=== PATIENT | female | born 1990 | race Caucasian/White ===

== ENCOUNTER 2021-08-29 07:37 | Inpatient (IN) ==
[2021-08-29] MEDS ORDERED: LACTATED RINGER'S 1,000 ML IV PRN (08:14)
[2021-08-29] MEDS ORDERED: OXYTOCIN 30 UNITS/500 ML BAG IV PRN ×3 (08:14→19:10)
[2021-08-29] MEDS ORDERED: PENICILLIN G POTASSIUM 6 MU in DEXTROSE 5% 250 ML IV STA (08:18)
[2021-08-29 08:42] LABS: Hematocrit (blood only) 32.3 % (37-47); Hemoglobin 10.6 g/dL (12.0-16.0); Mean Corpuscular Hemoglobin 26.8 pg (25-34); Mean Corpuscular Hgb Conc 32.8 g/dL (32-36); Mean Corpuscular Volume 81.6 fL (80-100); Mean Platelet Volume 10.6 fL (7.4-10.4); Platelet Count 264 K/uL (130-400); RDW Coefficient of Variation 13.3 % (11.5-14.5); RDW Standard Deviation 40.1 fL (36.4-46.3); Red Blood Count 3.96 M/uL (4.2-5.4); White Blood Count 9.93 K/uL (4.8-10.8)
--- NOTE | 2021-08-29 10:27 | History & Physical Report ---
Date of Service August 29, 2021 Assessment & Plan (1) GBS (group B Streptococcus carrier), +RV culture, currently : Plan: 31yo at 39.4 weeks GA. eIOL. 1. Fetus: Cat 1/ Reactive 2. Labor: s/p Robertson. Oxytocin per protocol. Will AROM when PCN complete. 3. GBS positive: PCN 4. Vitals: Normal (2) Supervision of normal intrauterine in multigravida: Admission and Anticipated Discharge Date Admission Date: August 29, 2021 History of Present Illness Primary Care Provider: NO PCP Maddy is a 31-year-old at 39 weeks 4 days gestational age presents for an elective induction of labor. has been uncomplicated to date. Patient has a history of 2 prior vaginal deliveries without complication. Patient fully placed last night which has subsequently come out this morning. Labs: Initial OB Labs 01/16/21 Blood Type & RH O positive Antibody Screen negative HCT/HGB 42.0/14.3 Platelets 312 Pap Test 2 yrs ago Chlamydia Gonorrhea Rubella immune RPR non reactive Urine Culture/Screen no growth HBsAg non reactive HIV non reactive MCV 89.7 QUAD- negative (04/03/21) Allergies Allergy/AdvReac Type Severity Reaction Status Date / Time No Known Allergies Allergy Verified 08/28/21 10:22 Home Medications Medication Instructions Recorded Confirmed Type prenat.vits,deshawn,rwh-jwla-nbtwa 1 tab PO DAILY 08/29/21 08/29/21 History Patient History Surgical History S/P dilation and curettage Family History Father Bladder cancer Aunt Breast cancer Grandmother (Maternal) Colorectal cancer Social History (Updated 05/25/21 @ 07:37 by Fabiola Jimenez) Smoking Status: Never smoker Second Hand Exposure: No; Hx Alcohol Use: No Hx Substance Use: No Preferred Language: Portuguese Communication Ability: Effective Blocklayer Required: No Beliefs That Will Affect Care: None marital status: marital status details: Eyad (33) [phone] Current Living Situation: Spouse Current Living Situation Comment: 4yr old and 2yr current occupational status: employed current occupation: Business analyist. Other Information That Helps Us Care for You: No Feels Safe at Home: Yes Safety Concerns: Feels Safe At This Time Assistive Devices: None Physical Exam Constitutional: WD/WN, vitals as above Respiratory: normal respiratory effort; no respiratory distress and no labored breathing Cardiovascular: Rate/Rhythm: regular rate Psychiatric: A+Ox3, euthymic affect Genitourinary: normal external appearance OB Exam Abdomen: + vertex Manual OB Exam: + cervical dilation 3 cm, + cervical effacement 60% and + station -2 OB Exam Monitor Tracing: + external FHT monitor used, + external uterine monitor used, + category I and + normal FHT variability; no early decelerations present, no late decelerations present and no variable decelerations Results & Data ([facility]) Vital Signs (Past 12 Hours) Vital Signs Temp Pulse Resp BP 08/29/21 08:19 36.5 C 20 08/29/21 07:52 108 H 113/67 Coding Level of Care Code None Diagnoses GBS (group B Streptococcus carrier), +RV culture, currently O99.820 Supervision of normal intrauterine in multigravida Z34.80
[2021-08-29] MEDS: PENICILLIN G POTASSIUM 3 MU in DEXTROSE 5% 100 ML IV PRN ×2 (13:16→16:50)
[2021-08-29] MEDS ORDERED: SODIUM CHLORIDE 0.9% INJ 10 ML VIAL ONE (13:24)
[2021-08-29] MEDS ORDERED: BUPIVACAINE 0.25% 30 ML VIAL ONE (13:24)
[2021-08-29] MEDS ORDERED: fentaNYL citrate 100 MCG/2 ML VIAL ONE (13:24)
[2021-08-29] MEDS ORDERED: ePHEDrine sulfate 50 MG/ML AMP ONE (13:24)
[2021-08-29] MEDS ORDERED: fentaNYL 2MCG/ML ROPIVACAINE 1.25MG/ML 100 ML BAG EPI ONE (13:25)
[2021-08-29] MEDS ORDERED: fentaNYL 2MCG/ML ROPIVACAINE 1.25MG/ML 100 ML BAG EPI PRN (13:32)
[2021-08-29] MEDS ORDERED: ONDANSETRON INJ 2 MG/ML 2 ML VIAL IV PRN (13:32)
[2021-08-29] MEDS ORDERED: NALOXONE HCL 1 MG in SODIUM CHLORIDE 0.9% 1000ML 1,000 ML IV PRN (13:32)
[2021-08-29] MEDS ORDERED: diphenhydrAMINE 50 MG/ML VIAL IV PRN (13:32)
[2021-08-29] MEDS ORDERED: NALBUPHINE HCL INJ 10 MG/ML AMP IV PRN (13:32)
[2021-08-29] MEDS ORDERED: ePHEDrine sulfate 50 MG/ML AMP IV PRN (13:32)
[2021-08-29] MEDS ORDERED: NALOXONE HCL 0.4 MG/1 ML VIAL/CARP IV PRN (13:32)
--- NOTE | 2021-08-29 13:36 | Anesthesiology Consultation ---
Date of Service August 29, 2021 Assessment & Plan ASA ASA2 Proposed Anesthesia Anesthesia Type: Labor Epidural Risk / Benefits Reviewed With: PT / POA / Parent / Guardian, Accepts Plan and Informed Consent Obtained History Height/Weight Height: 5 ft 3 in Weight: 69.853 kg Allergies Allergy/AdvReac Type Severity Reaction Status Date / Time No Known Allergies Allergy Verified 08/28/21 10:22 Medications Home Medications Medication Instructions Recorded Confirmed Last Taken prenat.vits,deshawn,kqa-llpa-nvium 1 tab PO DAILY 08/29/21 08/29/21 08/28/21 21:00 Active Medications Generic Name Dose Route Start Last Admin Trade Name Freq PRN Reason Stop Dose Admin Lactated Ringer's 1,000 mls @ 125 mls/hr 08/29/21 08:14 08/29/21 13:30 Lr IV 08/31/21 08:13 999 mls/hr .Q8H PRN Infusion L&D Protocol Protocol Penicillin G Potassium 3 mu/ 106 mls @ 100 mls/hr 08/29/21 11:14 08/29/21 13:16 Dextrose IV 09/08/21 11:13 100 mls/hr Q4H PRN Administration GBS(+) Until Delivery Oxytocin 30 units in 500 mls @ 8 mls/hr 08/29/21 08:17 08/29/21 11:26 Pitocin IV 08/31/21 08:16 0.48 units/hr .Q24H PRN 8 mls/hr Labor Induction/Augmentation Titration Protocol 0.48 UNITS/HR Ropivacaine 100 ml 08/29/21 13:32 08/29/21 14:08 Fentanyl 2mcg/Ml Ropivacaine 1.25mg/Ml 100 Ml Bag EPI 08/30/21 13:31 100 ml PRN PRN Administration Pain R/T Labor Protocol Exercise / Class Metabolic Activity II 4-5 Yardwork/Stairs/Walk up hill Past Family History Family History Father Bladder cancer Aunt Breast cancer Grandmother (Maternal) Colorectal cancer Past Surgical History Surgical History S/P dilation and curettage Past Anesthesia History No Hx of Anesthesia Complications and No Family Hx of Anesthesia Complications History of PONV No Hx of PONV and No Hx of Motion Sickness Social History Smoking Status: Never smoker Hx Alcohol Use: No Hx Substance Use: No substance use type: does not use Review of Systems denies fever/cough/ colds/ chest pain/ SOB/ DALIA denies DALIA Physical Exam Vital Signs Last Vital Signs Temp 36.5 C 08/29/21 08:19 Pulse 84 08/29/21 14:12 Resp 20 08/29/21 08:19 BP 110/67 08/29/21 14:12 Pulse Ox 100 08/29/21 14:11 ENMT Mouth: no TMJ abnormality and no dentition abnormality Thyromental Distance: > or= 3.5 Finger Breadths Mallampati Class: II Neck neck extension not limited Respiratory normal respiratory effort; no respiratory distress Auscultation: lungs clear to auscultation bilaterally Cardiovascular Rate/Rhythm: regular rate and regular rhythm Neurologic moves all extremities Psychiatric Orientation: alert and oriented x 3 Testing Laboratory Results 08/29/21 08:27
[2021-08-29] MEDS ORDERED: HYDROCORTISONE ACETATE 25 MG SUPP PR PRN (19:10)
[2021-08-29] MEDS ORDERED: DIPHTHERIA/TETANUS/PERTUSSIS 0.5 ML SYR/VIAL IM ONE (19:10)
[2021-08-29] MEDS ORDERED: METHYLERGONOVINE MALEATE 0.2 MG/ML AMP IM ONE (19:10)
[2021-08-29] MEDS ORDERED: BENZOCAINE 20% AER SPR 82.5 GM CAN EXT PRN (19:10)
[2021-08-29] MEDS ORDERED: METHYLERGONOVINE MALEATE 0.2 MG/ML AMP ONE (19:13)
--- NOTE | 2021-08-29 19:15 | Anesthesiology Progress Note ---
Date of Service August 29, 2021 Anesthesia Post Procedure Vital Signs Vital Signs: Temp Pulse Resp BP Pulse Ox 08/29/21 19:12 89 109/70 08/29/21 18:55 101 H 116/64 08/29/21 18:40 100 H 110/59 L 08/29/21 18:25 36.7 C 91 H 20 119/63 08/29/21 18:21 89 99 08/29/21 18:16 90 99 08/29/21 18:11 95 H 99 08/29/21 18:06 96 H 100 08/29/21 18:01 96 H 100 08/29/21 17:56 109 H 100 08/29/21 17:51 143 H 100 08/29/21 17:48 131 H 168/86 H 08/29/21 17:46 128 H 100 08/29/21 17:41 91 H 100 08/29/21 17:36 83 100 08/29/21 17:34 83 126/76 08/29/21 17:31 88 100 08/29/21 17:26 85 100 08/29/21 17:21 77 100 08/29/21 17:18 87 128/76 08/29/21 17:16 89 100 08/29/21 17:11 91 H 100 08/29/21 17:06 90 100 08/29/21 17:03 92 H 134/78 08/29/21 17:01 86 100 08/29/21 16:56 36.6 C 89 20 100 08/29/21 16:51 78 100 08/29/21 16:49 84 128/67 08/29/21 16:46 83 100 08/29/21 16:42 74 93 08/29/21 16:41 78 100 08/29/21 16:37 92 H 94 08/29/21 16:36 78 100 08/29/21 16:35 74 119/74 08/29/21 16:31 78 99 08/29/21 16:26 100 H 100 08/29/21 16:21 74 100 08/29/21 16:18 73 118/74 08/29/21 16:16 80 95 08/29/21 16:11 72 100 08/29/21 16:06 75 100 08/29/21 16:03 75 119/76 08/29/21 16:01 85 100 08/29/21 15:56 74 100 08/29/21 15:51 78 100 08/29/21 15:49 76 119/76 08/29/21 15:46 82 100 08/29/21 15:41 90 100 08/29/21 15:36 77 100 08/29/21 15:34 75 118/73 08/29/21 15:31 79 100 08/29/21 15:26 95 H 100 08/29/21 15:21 71 100 08/29/21 15:19 64 111/69 08/29/21 15:16 69 100 08/29/21 15:11 77 100 08/29/21 15:06 94 H 100 08/29/21 15:05 73 125/79 08/29/21 15:01 66 100 08/29/21 14:56 92 H 100 08/29/21 14:51 86 100 08/29/21 14:48 73 111/69 08/29/21 14:46 70 98 08/29/21 14:41 95 H 100 08/29/21 14:36 79 98 08/29/21 14:33 89 112/71 08/29/21 14:31 81 98 08/29/21 14:28 78 115/62 08/29/21 14:26 81 98 08/29/21 14:22 91 H 110/72 08/29/21 14:21 79 98 08/29/21 14:20 83 107/70 08/29/21 14:18 88 109/70 08/29/21 14:16 77 109/64 98 08/29/21 14:14 75 109/65 08/29/21 14:12 84 110/67 08/29/21 14:11 80 100 08/29/21 14:10 72 114/67 08/29/21 14:08 76 114/70 08/29/21 14:06 78 112/65 100 08/29/21 14:01 83 100 08/29/21 13:56 84 99 08/29/21 13:51 88 100 08/29/21 13:46 95 H 100 08/29/21 10:48 80 104/67 08/29/21 09:43 76 119/67 08/29/21 08:19 36.5 C 20 08/29/21 07:52 36.5 C 108 H 20 113/67 Transfer of Care Handoff Completed per policy Notes Mental Status: alert / awake / arousable and participated in evaluation Patient Amnestic to Procedure: Yes Nausea / Vomiting: adequately controlled Pain: adequately controlled Airway Patency, RR, SpO2: stable & adequate BP & HR: stable & adequate Hydration State: stable & adequate Anesthetic Complications: no major complications apparent and Pt Satisfied with anesthetic care
[2021-08-29] MEDS: IBUPROFEN 600 MG TAB PO PRN (21:04)
[2021-08-30] MEDS: IBUPROFEN 600 MG TAB PO PRN ×4 (00:56→20:44)
--- NOTE | 2021-08-30 03:03 | Delivery Summary ---
DATE OF SERVICE: 08/29/2021. PROCEDURE: Normal spontaneous vaginal delivery with second-degree perineal laceration repair. SURGEON: Derrell Zepeda MD. PREOPERATIVE DIAGNOSES: 1. Single intrauterine at 39 weeks 4 days gestational age. 2. GBS positive. 3. Elective induction of labor. POSTOPERATIVE DIAGNOSES: 1. Single intrauterine at 39 weeks 4 days gestational age. 2. GBS positive. 3. Elective induction of labor. 4. Status post delivery. ESTIMATED BLOOD LOSS: 300 mL. DRAINS: Straight cath at the completion of the case. URINE OUTPUT: 400 mL per straight cath. COMPLICATIONS: None. FINDINGS: Viable male with weight and Apgars pending. INDICATIONS: The patient is a 31-year-old G5, P2 at 39 weeks 4 days gestational age, admitted for el ective induction of labor. The patient had a Robertson placed last night, which fell out prior to presen ting in this morning for induction. She was started on oxytocin per regular protocol, received penic illin for GBS positive and later received an epidural for anesthesia. After she was noted to be compl ete on the penicillin, she underwent artificial rupture of membranes for clear fluid and progressed i n labor to complete-complete, +2 station and pushed over 2 contractions to achieve delivery. DESCRIPTION OF PROCEDURE: The patient progressed to 10 cm dilated, 100% effaced, positive 2 station, pushed over intact perineum with epidural anesthesia, and delivered a viable male infant, weight and Apgars as noted above. Head of the delivered in MAXIMNIO position, restituted to right transvers e. No nuchal cord was noted. Body and shoulders quickly followed. was noted to be vigorous soon after delivery and a 1 minute delayed cord clamping was initiated. The cord was then double cl amped and cut. remained on maternal abdomen. Cord blood was obtained. Attention was then turned to delivery of the placenta, which was delivered intact, 3-vessel cord, gen tle cord traction. On inspection of the perineum, vagina, cervix, there was noted to be a second-deg ree perineal laceration. The laceration was repaired with 3-0 Vicryl in a traditional crown stitch. Needle, sponge, and instrument counts were correct at the completion of the case. A rectal exam was performed to ensure that no sutures were in the vagina as the perineal thickness was noted to be rath er thin, especially within the vaginal canal. The needle, sponge, and instrument counts were correct at the completion of the case. Both, the mother and were stable in the immediate post-deliv ridge period. Job ID: [id number]
[2021-08-30] MEDS: ACETAMINOPHEN 325 MG TAB PO PRN ×2 (03:23→16:01)
[2021-08-30 07:02] LABS: Hematocrit (blood only) 26.3 % (37-47); Hemoglobin 8.4 g/dL (12.0-16.0)
--- NOTE | 2021-08-30 07:40 | Obstetrical Progress Note ---
Date of Service <Zia Noonan MD - Last Filed: 08/30/21 07:40> August 30, 2021 Assessment & Plan <Zia Noonan MD - Last Filed: 08/30/21 07:40> (1) Vaginal delivery: 31 yo now PPD1 from at 39wk4d -Continue routine care, discharge today -Vitals reviewed- HDS, afebrile -Blood type O+, GBS+ (PCN given intrapartum), Rubella immune -Pain control with ibuprofen, acetaminophen PRN -Encourage -Hgb 8.4 today, asymptomatic -F/u in 6 weeks with OB <Derrell Zepeda MD - Last Filed: 08/31/21 17:20> (1) Vaginal delivery: Subjective <Zia Noonan MD - Last Filed: 08/30/21 07:40> Ambulation: ambulating normally Voiding: no voiding problems Passing Gas:: Yes Diet Tolerance:: regular diet Lochia:: Small Feeding Type:: breast feeding Current Pain Level(1-10): 0 Pt doing well overall, no acute complaints or distress. Pain well controlled with medication. Would like to go home today. Review of Systems Denies fever/chills. Denies dyspnea, cough. Denies chest pain. Denies breast pain or discharge. Denies dysuria. Denies headache. Denies back pain. Physical Exam <Zia Noonan MD - Last Filed: 08/30/21 07:40> Exam per Dr. Zepeda Results & Data ([facility]) <Zia Noonan MD - Last Filed: 08/30/21 07:40> Vital Signs (Past 12 Hours) Vital Signs Temp Pulse Pulse Pulse Resp BP BP 08/30/21 03:15 36.7 C 84 18 99/63 L 08/30/21 00:30 36.6 C 90 18 103/66 08/29/21 21:03 100 H 115/67 08/29/21 21:00 36.7 C 20 08/29/21 20:30 20 08/29/21 19:55 86 20 117/61 Pulse Ox 08/30/21 03:15 97 08/30/21 00:30 96 08/29/21 21:03 08/29/21 21:00 08/29/21 20:30 08/29/21 19:55 <Derrell Zepeda MD - Last Filed: 08/31/21 17:20> Co-Signing Physician Notes Patient seen and evaluated and agree with the above findings and plan. Stable for discharge Resident Activity Tracking <Zia Noonan MD - Last Filed: 08/30/21 07:40> Resident Involvement: Resident Care Provided Care Provided: OB Delivery
[2021-08-30] MEDS: PRENATAL VITAMIN 1 TAB PO SCH (08:26)
[2021-08-30] MEDS: DOCUSATE SODIUM 100 MG CAP PO SCH ×2 (08:26→22:53)
[2021-08-30] MEDS ORDERED: bisacodyL 5 MG TABEC PO SCH (20:00)
[2021-08-31] MEDS ORDERED: bisacodyL 10 MG SUPP PR PRN
[2021-08-31] MEDS: IBUPROFEN 600 MG TAB PO PRN ×2 (04:26→09:39)
--- NOTE | 2021-08-31 05:48 | Obstetrical Progress Note ---
Date of Service <Zia Noonan MD - Last Filed: 08/31/21 06:49> August 31, 2021 Assessment & Plan <Zia Noonan MD - Last Filed: 08/31/21 06:49> (1) Vaginal delivery: 31 yo now PPD2 from at 39wk4d -Continue routine care, discharge today -Vitals reviewed- HDS, afebrile -Blood type O+, GBS+ (PCN given intrapartum), Rubella immune -Pain control with ibuprofen, acetaminophen PRN -Encourage -Hgb 8.4 on 08/30, asymptomatic -F/u in 6 weeks with OB <Allie Eldridge MD, FACOG - Last Filed: 08/31/21 07:46> (1) Vaginal delivery: Subjective <Zia Noonan MD - Last Filed: 08/31/21 06:49> Ambulation: ambulating normally Voiding: no voiding problems Passing Gas:: Yes Diet Tolerance:: regular diet Lochia:: Small Feeding Type:: breast feeding Current Pain Level(1-10): 0 Pt doing well overall, no acute complaints or distress. Pain well controlled with medication. Would like to go home today. Was supposed to go on day prior but baby had choking spell in evening so they stayed for the night, no choking spells since. Review of Systems Denies fever/chills. Denies dyspnea, cough. Denies chest pain. Denies breast pain or discharge. Denies dysuria. Denies headache. Denies back pain. Physical Exam <Zia Noonan MD - Last Filed: 08/31/21 06:49> General: Alert, oriented, no acute distress Cardiac: Regular rate and rhythm, normal S1, S2. No murmurs appreciated. Respiratory: Clear to auscultation b/l with good air flow entry, symmetric chest rise and fall. No wheezes or crackles. No increased work of breathing or accessory muscle use Abdomen: Soft, nontender, nondistended. Fundus firm and palpable at 2 cm below umbilicus. No guarding or rebound. Skin: No rashes or lesions Extremities: Warm, dry, well-perfused with capillary refill <2s b/l. No lower extremity edema, erythema or swelling Results & Data ([facility]) <Zia Noonan MD - Last Filed: 08/31/21 06:49> Vital Signs (Past 12 Hours) Vital Signs Temp Pulse Resp BP 08/31/21 04:00 36.6 C 80 20 118/70 08/30/21 20:00 36.8 C 82 18 122/76 <Allie Eldridge MD, FACOG - Last Filed: 08/31/21 07:46> Co-Signing Physician Notes Resident Physician Supervision Note: I interviewed and examined the patient. Discussed with Dr. Noonan and agree with findings and plan as documented in the note. Any exceptions or clarifications are listed here: Doing well. Plan d/c today. Instructions given. Documented By: Allie Eldridge MD, FACOG Resident Activity Tracking <Zia Noonan MD - Last Filed: 08/31/21 06:49> Resident Involvement: Resident Care Provided Care Provided: OB Delivery
[2021-08-31] MEDS: PRENATAL VITAMIN 1 TAB PO SCH (09:39)
[2021-08-31] MEDS: DOCUSATE SODIUM 100 MG CAP PO SCH (09:39)
== END 2021-08-31 11:40 | disposition home or self-care (01) | DRG 807 ==
LOC: 4S1 07:37 → 4S2 21:30

== ENCOUNTER 2023-10-14 09:37 | Inpatient (IN) ==
[2023-10-14] MEDS ORDERED: LIDOCAINE 1% LOCAL 20 ML VIAL INFIL PRN (09:59)
[2023-10-14] MEDS ORDERED: OXYTOCIN 30 UNITS/NSS 30 UNITS/500 ML BAG IV PRN ×2 (09:59→19:24)
--- NOTE | 2023-10-14 10:07 | History & Physical Report ---
"Date of Service October 14, 2023 Assessment & Plan (1) Encounter for induction of labor: (2) Group beta Strep positive: Plan pitocin arom when indicated monitor tracing, category 1 penicillin G for GBS+ Admission and Anticipated Discharge Date Admission Date: October 14, 2023 History of Present Illness Primary Care Provider: PIETER PCP 33 yo at 39w4d admitted for IOL. Denies JACOB, CP, SOB, N/V/D, LE pain. GBS +, RH+, + movement, negative LOF Allergies Allergy/AdvReac Type Severity Reaction Status Date / Time No Known Allergies Allergy Verified 10/10/23 13:34 Home Medications Medication Instructions Recorded Confirmed Type prenat.vits,deshawn,mcv-agdy-tdiya 1 tab PO DAILY 08/29/21 10/14/23 History ferrous sulfate 325 mg (65 mg 325 mg PO DAILY 08/23/23 10/14/23 History iron) tablet (Feosol) Patient History Medical History (Updated 10/14/23 @ 10:14 by Itz Rosas DO) History of chicken pox GBS (group B Streptococcus carrier), +RV culture, currently Surgical History S/P dilation and curettage Family History Father Bladder cancer Aunt Breast cancer Grandmother (Maternal) Colorectal cancer Denies family history of Ovarian cancer Social History Smoking Status: Never smoker Second Hand Exposure: No; Do You Dip or Chew Tobacco: No; Hx Alcohol Use: No Hx Substance Use: No Preferred Language: [place]guill[place] Communication Ability: Effective Slide Fasteners Inspector Required: No Beliefs That Will Affect Care: None marital status: marital status details: Eyad Crystal (35) [phone] Current Living Situation: Spouse and Family Current Living Situation Comment: lives with spouse, 3 children, dogs current occupational status: employed current occupation: Business analyist. Other Information That Helps Us Care for You: No Feels Safe at Home: Yes Safety Concerns: Feels Safe At This Time Assistive Devices: None OB History History : 6 Full term: 3 Premature: 0 Total Number of Induced Abortions: 0 Total Number of Spontaneous Abortions: 2 Ectopics: 0 Multiple births: 0 Number of Living Children: 3 Menstrual History Last menstrual period: Yes Menstrual reliability: definite Flow: normal Menstrual regularity: regular Monthly: Yes Age at menarche: 13 On control pills at conception: No Date of positive home test: 02/06/23 Menstrual history comments: cycles 28-30 days Details: last pap 06/01/[address] Flores Review of Systems reviewed, per HPI Physical Exam Physical Exam: General: patient resting comfortably, NAD, non-toxic in appearance Skin: warm, dry, intact HEENT: NC/AT, moist mucus membranes Heart: +S1/S2, regular, no m/r/g Lungs: equal air entry bilaterally, no rales/rhonchi/wheezes Abd: +BS, soft, NT/ND, gravid uterus Cervical: 2.5|75|-2| Ext: warm, no clubbing/cyanosis or edema Neuro: nonfocal, patient AA&O x 4, speech intact, no facial droop, moving all extremities on command. : FHR baseline 130, moderate variability, accelerations present, decelerations absent Results & Data Vital Signs (Past 12 Hours) Vital Signs Temp Pulse Resp BP 10/14/23 09:51 103 H 113/55 L 10/14/23 09:45 16 10/14/23 09:45 36.7 C 16 Supervising Physician Co-Signing Physician Notes Patient seen and evaluated and agree with the above findings and plan. Resident Activity Tracking Resident Involvement: Resident Care Provided Care Provided: Adult Hospital Medicine"
[2023-10-14 10:46] LABS: Hematocrit (blood only) 34.4 % (37.0-47.0); Hemoglobin 11.5 g/dl (12.0-16.0); Mean Corpuscular Hemoglobin 29.3 pg (25.0-34.0); Mean Corpuscular Hgb Conc 33.4 g/dL (32.0-36.0); Mean Corpuscular Volume 87.5 fL (80.0-100.0); Mean Platelet Volume 10.3 fL (9.4-12.4); Platelet Count 197 K/uL (130-400); RDW Coefficient of Variation 16.1 % (11.5-14.5); RDW Standard Deviation 51.9 fL (36.4-46.3); Red Blood Count 3.93 M/uL (4.20-5.40); White Blood Count 8.28 K/ul (4.8-10.8)
[2023-10-14] MEDS: LACTATED RINGER'S 1,000 ML IV PRN (11:00)
[2023-10-14] MEDS: PENICILLIN GK 6 MU in DEXTROSE 5% 250 ML IV STA (11:09)
[2023-10-14] MEDS: OXYTOCIN 30 UNITS/NSS 30 UNITS/500 ML BAG IV PRN (11:10)
[2023-10-14] MEDS: PENICILLIN GK 3 MU in DEXTROSE 5% 100 ML IV PRN (14:40)
[2023-10-14] MEDS ORDERED: ROPIVACAINE 0.5% PF 5 MG/ML 20 ML VIAL EPI PRN (15:14)
[2023-10-14] MEDS ORDERED: SODIUM CHLORIDE 0.9% PF INJ 10 ML VIAL EPI PRN (15:14)
[2023-10-14] MEDS ORDERED: LIDOCAINE 2% MPF LOCAL 5 ML VIAL EPI PRN (15:14)
[2023-10-14] MEDS ORDERED: ePHEDrine sulfate 50 MG/ML AMP IV PRN (15:14)
[2023-10-14] MEDS ORDERED: NALBUPHINE HCL 5 MG in SYRINGE 0 ML IV PRN (15:14)
[2023-10-14] MEDS ORDERED: NALOXONE HCL 0.4 MG/1 ML VIAL/CARP IV PRN (15:14)
[2023-10-14] MEDS ORDERED: fentaNYL citrate PF 100 MCG/2 ML VIAL EPI PRN (15:14)
[2023-10-14] MEDS ORDERED: BUPIVACAINE 0.25% PF 30 ML VIAL EPI PRN (15:14)
[2023-10-14] MEDS ORDERED: diphenhydrAMINE 50 MG/ML VIAL IV PRN (15:14)
[2023-10-14] MEDS ORDERED: ONDANSETRON INJ 2 MG/ML 2 ML VIAL IV PRN (15:14)
[2023-10-14] MEDS ORDERED: NALOXONE HCL 1 MG in SODIUM CHLORIDE 0.9% 1,000 ML IV PRN (15:14)
--- NOTE | 2023-10-14 15:15 | Anesthesiology Consultation ---
Date of Service October 14, 2023 Assessment & Plan (1) Encounter for pre-operative examination: Chart Review Chart Review: Patient NOT seen in Pre Admission Testing and Acceptable Risk for Labor Epidural Consults Requested none History Height/Weight Height: 5 ft 3 in Weight: 72.665 kg Allergies Allergy/AdvReac Type Severity Reaction Status Date / Time No Known Allergies Allergy Verified 10/10/23 13:34 Medications Home Medications Medication Instructions Recorded Confirmed Last Taken prenat.vits,deshawn,wst-qqei-owkwm 1 tab PO DAILY 08/29/21 10/14/23 10/13/23 21:00 ferrous sulfate 325 mg (65 mg 325 mg PO DAILY 08/23/23 10/14/23 10/13/23 21:00 iron) tablet (Feosol) Active Medications Generic Name Dose Route Start Last Admin Trade Name Freq PRN Reason Stop Dose Admin Lactated Ringer's 1,000 mls @ 125 mls/hr 10/14/23 09:59 10/14/23 13:10 Lr IV 10/16/23 09:58 125 mls/hr .Q8H PRN Administration L&D Protocol Protocol Penicillin G Potassium 3 mu/ 106 mls @ 100 mls/hr 10/14/23 12:59 10/14/23 14:40 Dextrose IV 10/24/23 12:58 100 mls/hr Q4H PRN Administration GBS(+) Until Delivery Oxytocin 30 units in 500 mls @ 6 mls/hr 10/14/23 10:02 10/14/23 14:30 Pitocin 30 Units/Nss IV 10/16/23 10:01 0.36 units/hr .Q24H PRN 6 mls/hr Labor Induction/Augmentation Titration Protocol 0.36 UNITS/HR Past Medical History Medical History (Updated 10/14/23 @ 15:15 by Oc Coleman MD) Encounter for pre-operative examination History of chicken pox GBS (group B Streptococcus carrier), +RV culture, currently Past Family History Family History Father Bladder cancer Aunt Breast cancer Grandmother (Maternal) Colorectal cancer Denies family history of Ovarian cancer Past Surgical History Surgical History S/P dilation and curettage Social History Smoking Status: Never smoker Do You Dip or Chew Tobacco: No Hx Alcohol Use: No Hx Substance Use: No substance use type: does not use Physical Exam Vital Signs Last Vital Signs Temp 36.7 C 10/14/23 14:00 Pulse 95 H 10/14/23 15:35 Resp 18 10/14/23 14:30 BP 127/71 10/14/23 15:35 Pulse Ox 100 10/14/23 15:32 Testing Laboratory Results 10/14/23 10:24 Blood Type O Positive 10/14/23 10:24 Antibody Screen NEGATIVE 10/14/23 10:24
[2023-10-14] MEDS: BUPIVACAINE 0.25% PF 30 ML VIAL EPI STA (15:38)
[2023-10-14] MEDS: LIDOCAINE 2%/EPINEPHRINE 1:200,000 20 ML PF EPI STA (15:38)
[2023-10-14] MEDS: fentaNYL citrate PF 100 MCG/2 ML VIAL EPI STA (15:38)
[2023-10-14] MEDS: fentANYL 2 MCG/ML BUPIVacaine 0.125%-NSS 100ML BAG EPI PRN (15:39)
[2023-10-14] MEDS: ePHEDrine sulfate 50 MG/ML AMP ONE (15:45)
[2023-10-14] MEDS: SODIUM CHLORIDE 0.9% PF INJ 10 ML VIAL ONE (15:46)
[2023-10-14] MEDS: fentaNYL citrate PF 100 MCG/2 ML VIAL ONE (15:46)
[2023-10-14] MEDS: BUPIVACAINE 0.25% PF 30 ML VIAL ONE (15:46)
[2023-10-14] MEDS: LIDOCAINE 2%/EPINEPHRINE 1:200,000 20 ML PF ONE (15:46)
[2023-10-14] MEDS: fentANYL 2 MCG/ML BUPIVacaine 0.125%-NSS 100ML BAG ONE (15:46)
[2023-10-14] MEDS: SODIUM CHLORIDE 0.9% PF INJ 10 ML VIAL EPI STA (15:48)
[2023-10-14] MEDS: miSOPROStoL 200 MCG TAB ONE (18:59)
[2023-10-14] MEDS ORDERED: HYDROCORTISONE ACETATE 25 MG SUPP PR PRN (19:24)
[2023-10-14] MEDS ORDERED: bisacodyL 10 MG SUPP PR PRN (19:24)
[2023-10-14] MEDS ORDERED: BENZOCAINE 20% SPRY 85 APPLN/85 GM CAN EXT PRN (19:24)
[2023-10-14] MEDS: miSOPROStoL 200 MCG TAB PR ONE (20:03)
--- NOTE | 2023-10-14 21:17 | Delivery Summary ---
Vaginal Delivery Summary Date of Service October 14, 2023 Vaginal Delivery Summary and 2nd Degree LAC Patient delivered precipitously with head delivering upon evaluation by nursing. Body and shoulders quickly followed and nursing reported a single nuchal cord. I entered the room moments after delivery and was noted to be vigorous and on maternal abdomen. Immediately count for care and presented for evaluation. After 1 minute delayed cord clamping the cord was double clamped and cut. remained on the maternal abdomen. Cord blood obtained. Placenta was then delivered with three-vessel cord gentle cord traction noted to be intact. Evaluation of cervix, vagina and perineum were notable for a second- degree perineal laceration which was repaired with 3-0 Vicryl in traditional crown stitch. Needle sponge and instrument counts are correct at the completion of the case. No complications noted. Estimated blood loss 400 mL [facility] Vaginal Delivery Charge Delivery Type Details: and 2nd Degree LAC
[2023-10-14] MEDS: DOCUSATE SODIUM 100 MG CAP PO SCH (21:34)
[2023-10-14] MEDS: IBUPROFEN 600 MG TAB PO PRN (21:34)
[2023-10-14] MEDS: ACETAMINOPHEN 325 MG TAB PO PRN (21:34)
--- NOTE | 2023-10-14 22:00 | Anesthesia Procedure Note ---
Date of Service October 14, 2023 Anesthesia Post Epidural Note Vital Signs Vital Signs: Temp Pulse Resp BP Pulse Ox O2 Del Method 36.9 C 100 H 20 99/65 L 99 Room Air 10/14/23 21:10 10/14/23 21:11 10/14/23 21:10 10/14/23 21:11 10/14/23 21:10 10/14/23 21:10 Pain Intensity Bilateral Lower Abdomen: Pain Intensity: 3 Notes Mental Status: alert / awake / arousable and participated in evaluation Nausea / Vomiting: adequately controlled Pain: adequately controlled Airway Patency, RR, SpO2: stable & adequate BP & HR: stable & adequate Hydration State: stable & adequate Neuraxial Anesthesia: was administered and sensory block resolved Anesthetic Complications: no major complications apparent and Pt Satisfied with anesthetic care Epidural: Removed without complications and With tip intact
[2023-10-15 06:20] LABS: Hematocrit (blood only) 32.7 % (37.0-47.0)
--- NOTE | 2023-10-15 06:22 | Obstetrical Progress Note ---
Date of Service October 15, 2023 Assessment & Plan (1) care and examination: Plan Doing well Encourage ambulation Pain control Plan for late DC today pending infant clearance by pediatrics Admission and Anticipated Discharge Date Admission Date: October 14, 2023 Supervising Physician Co-Signing Physician Notes Patient seen with resident and agree with the above findings and plan. Stable for discharge at 24 hours post delivery Subjective 33 yo [id number] post day 1 s/p Ambulation: ambulating normally Voiding: no voiding problems Passing Gas:: Yes Diet Tolerance:: regular diet Lochia:: Small Current Pain Level: Resting comfortably this AM in NAD. Denies JACOB, CP, SOB, N/V/D, LE pain/swelling. Desires late DC today Review of Systems Constitutional: reviewed, per HPI Physical Exam Physical Exam: General: patient resting comfortably, NAD, non-toxic in appearance Skin: warm, dry, intact HEENT: NC/AT, anicteric sclera, conjunctiva without injection, moist mucus membranes. Heart: +S1/S2, regular, no m/r/g Lungs: equal air entry bilaterally, no rales/rhonchi/wheezes Abd: +BS, soft, NT/ND, uterine fundus firm at umbilicus Ext: warm, no clubbing/cyanosis or edema, Alix's neg. Neuro: nonfocal, speech intact, no facial droop, moving all extremities on comm and. Results & Data Vital Signs (Past 12 Hours) Vital Signs Temp Pulse Pulse Resp BP BP Pulse Ox 10/15/23 03:10 36.3 C L 98 H 16 108/66 10/14/23 23:31 36.6 C 101 H 16 101/63 10/14/23 21:11 100 H 99/65 L 10/14/23 21:10 36.9 C 100 H 20 99/65 L 99 10/14/23 21:10 36.9 C 20 10/14/23 20:55 99 H 123/75 10/14/23 20:41 107 H 119/74 10/14/23 20:40 18 10/14/23 20:26 108 H 136/84 10/14/23 20:10 20 10/14/23 20:10 93 H 120/57 L 10/14/23 19:56 95 H 119/55 L 10/14/23 19:55 20 10/14/23 19:40 18 10/14/23 19:40 90 121/76 10/14/23 19:27 92 H 100 10/14/23 19:26 93 H 130/79 10/14/23 19:25 18 10/14/23 19:22 93 H 100 10/14/23 19:17 93 H 100 10/14/23 19:12 101 H 99 10/14/23 19:10 36.8 C 20 10/14/23 19:10 97 H 114/58 L 10/14/23 19:07 98 H 100 10/14/23 19:04 99 H 90 10/14/23 19:02 88 99 10/14/23 18:57 87 98 10/14/23 18:56 89 118/59 L 10/14/23 18:52 98 H 97 10/14/23 18:47 101 H 98 10/14/23 18:42 18 10/14/23 18:42 18 10/14/23 18:42 18 10/14/23 18:42 18 10/14/23 18:42 18 10/14/23 18:42 18 10/14/23 18:42 91 10/14/23 18:42 120 H 10/14/23 18:42 113 H 90 10/14/23 18:41 129 H 114/63 10/14/23 18:37 100 10/14/23 18:37 100 H 10/14/23 18:37 98 H 91 10/14/23 18:32 102 H 100 10/14/23 18:27 100 10/14/23 18:27 100 H 10/14/23 18:27 97 H 118/66 10/14/23 18:22 98 H 100 O2 Del Method 10/15/23 03:10 Room Air 10/14/23 23:31 Room Air 10/14/23 21:11 10/14/23 21:10 Room Air 10/14/23 21:10 10/14/23 20:55 10/14/23 20:41 10/14/23 20:40 10/14/23 20:26 10/14/23 20:10 10/14/23 20:10 10/14/23 19:56 10/14/23 19:55 10/14/23 19:40 10/14/23 19:40 10/14/23 19:27 10/14/23 19:26 10/14/23 19:25 10/14/23 19:22 10/14/23 19:17 10/14/23 19:12 10/14/23 19:10 10/14/23 19:10 10/14/23 19:07 10/14/23 19:04 10/14/23 19:02 10/14/23 18:57 10/14/23 18:56 10/14/23 18:52 10/14/23 18:47 10/14/23 18:42 10/14/23 18:42 10/14/23 18:42 10/14/23 18:42 10/14/23 18:42 10/14/23 18:42 10/14/23 18:42 10/14/23 18:42 10/14/23 18:42 10/14/23 18:41 10/14/23 18:37 10/14/23 18:37 10/14/23 18:37 10/14/23 18:32 10/14/23 18:27 10/14/23 18:27 10/14/23 18:27 10/14/23 18:22 Resident Activity Tracking Resident Involvement: Resident Care Provided Care Provided: Adult Hospital Medicine
[2023-10-15] MEDS: PRENATAL VITAMIN 1 TAB PO SCH (07:38)
[2023-10-15] MEDS: DIPHTHER/TETAN/PERTUS Vaccine (Tdap, Adol/Adult) 0.5mL IM ONE (07:38)
[2023-10-15] MEDS: FERROUS SULFATE 325 MG TAB PO SCH (07:38)
[2023-10-15] MEDS ORDERED: bisacodyL 5 MG TABEC PO SCH (20:00)
== END 2023-10-15 20:15 | disposition home or self-care (01) | DRG 807 ==
LOC: 4S1 09:37 → 4E2 21:46